=== PATIENT | female | born 1940 | race Caucasian/White ===

== ENCOUNTER 2016-10-03 18:34 | Emergency (ER) | payer MEDICARE, BC ==
[2016-10-03] MEDS ORDERED: SODIUM CHLORIDE 0.9% 1,000 ML IV STA (19:19)
--- NOTE | 2016-10-03 19:32 | ED ---
General Adult HPI - General Chief complaint: Dizziness Stated complaint: difficulty walking Time Seen by Provider: 10/03/16 19:00 Source: patient, family, RN notes reviewed Mode of arrival: wheelchair Limitations: no limitations - History of Present Illness Initial comments: This is a 76-year-old female who presents with complaints of feeling shaky and nervous and unsteady gait. She states she not feeling well for last several weeks. She was seen by her doctor 4 days ago he did have blood work done which apparently was okay. She was noted have also increase blood pressure recently she had taken extra medication. She's had some urinary frequency she is likely a decreased oral intake. No other complaints other than a cough and some shortness of breath the patient's history of lung cancer she had a right upper lobe resection approximately 3 years ago and was treated with chemotherapy. She has been doing well since then. She had a PET scan done approximately year ago which showed no apparent findings at that time. - Related Data Home Medications Medication Instructions Recorded Confirmed Aspirin 81 mg PO DAILY 07/17/14 10/03/16 Atenolol [Tenormin] 25 mg PO DAILY 07/17/14 10/03/16 Benazepril HCl 20 mg PO DAILY 07/17/14 10/03/16 Isosorbide Mononitrate [Imdur] 30 mg PO DAILY 07/17/14 10/03/16 Atorvastatin [Lipitor] 10 mg PO HS 06/11/15 10/03/16 Multivitamins, Thera [Theragran] 1 tab PO DAILY 06/11/15 10/03/16 L.acidoph,Paracasei, B.lactis 1 cap PO DAILY 07/28/16 10/03/16 [Probiotic] Allergies Allergy/AdvReac Type Severity Reaction Status Date / Time amoxicillin AdvReac Unknown Verified 10/03/16 19:47 Childhood Review of Systems ROS Statement: Those systems with pertinent positive or pertinent negative responses have been documented in the HPI. ROS Other: All systems not noted in ROS Statement are negative. Past Medical History Past Medical History: Asthma, Coronary Artery Disease (CAD), Cancer, COPD, GERD/ Reflux, Hypertension Additional Past Medical History / Comment(s): hx. lung cancer, tongue cancer status post resection and left neck lymph node resection, fell fx tailbone,, fx rt ankle, has torn rt rotator cuff limited range of motion.occ vertigo, History of Any Multi-Drug Resistant Organisms: None Reported Past Surgical History: Tonsillectomy Additional Past Surgical History / Comment(s): YVES cataract surg., surgery for tongue cancer & removal of lymph nodes left neck, recent right partial lobectomy of lung October 2013 has spread to lymph nodes(sternum per pt),had had 6 chemo tx(last one may 26),d&c, yves cataracts, lt carotid endarterectomy Past Anesthesia/Blood Transfusion Reactions: No Reported Reaction Additional Past Anesthesia/Blood Transfusion Reaction / Comment(s): occ vertigo , clausterphobia. Past Psychological History: Anxiety Smoking Status: Current some day smoker Past Alcohol Use History: None Reported Additional Past Alcohol Use History / Comment(s): 1 pack may last 4 days Past Drug Use History: None Reported - Past Family History Father Family Medical History: Cancer, Dementia, Hyperlipidemia, Hypertension, Prostate Disorder Additional Family Medical History / Comment(s): PROSTATE Mother Family Medical History: Congestive Heart Failure (CHF), Hyperlipidemia, Hypertension General Exam - General Exam Comments Initial Comments: This is a well-developed well-nourished awake alert oriented 3 female Limitations: no limitations General appearance: alert, in no apparent distress Head exam: Present: atraumatic, normocephalic, normal inspection Eye exam: Present: normal appearance, PERRL, EOMI. Absent: scleral icterus, conjunctival injection, periorbital swelling ENT exam: Present: mucous membranes dry Neck exam: Present: normal inspection. Absent: tenderness, meningismus, lymphadenopathy Respiratory exam: Present: decreased breath sounds. Absent: respiratory distress, wheezes, rales, rhonchi, stridor Cardiovascular Exam: Present: regular rate, normal rhythm, normal heart sounds. Absent: systolic murmur, diastolic murmur, rubs, gallop, clicks GI/Abdominal exam: Present: soft, normal bowel sounds. Absent: distended, tenderness, guarding, rebound, rigid Extremities exam: Present: normal inspection, full ROM, normal capillary refill. Absent: tenderness, pedal edema, joint swelling, calf tenderness Back exam: Present: normal inspection Neurological exam: Present: alert, oriented X3, CN II-XII intact Psychiatric exam: Present: normal affect, normal mood Skin exam: Present: warm, dry, intact, normal color. Absent: rash Course Vital Signs 10/03/16 10/03/16 18:39 18:55 Temperature 98.4 F Pulse Rate 71 68 Respiratory 20 16 Rate Blood Pressure 162/74 154/78 O2 Sat by Pulse 96 95 Oximetry EKG Findings - EKG Results: EKG: interpreted by STEFFEN (Sinus rhythm rate is 70 WI interval 134 QRS duration 94 QT/QTC of 392/423 that exodeviation incomplete right bundle-branch block old septal changes no acute ST-T wave changes are seen at this time. Artifact is present) Medical Decision Making - Medical Decision Making I did a long discussion with the patient family members including 3 daughters regarding the findings. Patient currently is asymptomatic. We did a long discussion regarding the findings and the need for transfer for neurosurgical evaluation. After discussion the family is selected [facility]. I did discuss the case with Dr. Sanchez in the emergency department was agreed to set the patient transfer. Patient will be transferred via EMS. The patient was given 10 mg of Decadron prior to discharge. The metastatic event secondary to the previous lung cancer suspected though of course a second primary or secondary source of metastatic disease as not ruled out. - Lab Data Result diagrams: 10/03/16 18:55 10/03/16 18:55 Lab Results 10/03/16 10/03/16 10/03/16 Range/Units 18:55 18:55 18:55 WBC 7.6 (3.8-10.6) k/uL RBC 3.81 (3.80-5.40) m/uL Hgb 13.0 (11.4-16.0) gm/dL Hct 39.0 (34.0-46.0) % MCV 102.3 H (80.0-100.0) fL MCH 34.2 (25.0-35.0) pg MCHC 33.4 (31.0-37.0) g/dL RDW 13.1 (11.5-15.5) % Plt Count 152 (150-450) k/uL Neutrophils % 58 % Lymphocytes % 26 % Monocytes % 11 % Eosinophils % 1 % Basophils % 1 % Neutrophils # 4.4 (1.3-7.7) k/uL Lymphocytes # 2.0 (1.0-4.8) k/uL Monocytes # 0.8 (0-1.0) k/uL Eosinophils # 0.1 (0-0.7) k/uL Basophils # 0.1 (0-0.2) k/uL Macrocytosis Slight Sodium 130 L (137-145) mmol/L Potassium 4.2 (3.5-5.1) mmol/L Chloride 93 L (98-107) mmol/L Carbon Dioxide 27 (22-30) mmol/L Anion Gap 10 mmol/L BUN 20 H (7-17) mg/dL Creatinine 0.64 (0.52-1.04) mg/dL Est GFR (MDRD) Af Amer >60 (>60 ml/min/1.73 sqM) Est GFR (MDRD) Non-Af >60 (>60 ml/min/1.73 sqM) Glucose 99 (74-99) mg/dL Calcium 9.2 (8.4-10.2) mg/dL Magnesium 1.4 L (1.6-2.3) mg/dL Total Bilirubin 0.4 (0.2-1.3) mg/dL AST 35 (14-36) U/L ALT 45 (9-52) U/L Alkaline Phosphatase 68 (38-126) U/L Total Creatine Kinase 113 (30-135) U/L CK-MB (CK-2) 2.9 H* (0.0-2.4) ng/mL CK-MB (CK-2) Rel Index 2.6 Total Protein 6.7 (6.3-8.2) g/dL Albumin 4.1 (3.5-5.0) g/dL Amylase 90 (30-110) U/L Lipase 145 (23-300) U/L Urine Color Urine Appearance (Clear) Urine pH (5.0-8.0) Ur Specific [place] (1.001-1.035) Urine Protein (Negative) Urine Glucose (UA) (Negative) Urine Ketones (Negative) Urine Blood (Negative) Urine Nitrate (Negative) Urine Bilirubin (Negative) Urine Urobilinogen (<2.0) mg/dL Ur Leukocyte Esterase (Negative) Urine RBC (0-5) /hpf Urine WBC (0-5) /hpf Ur Squamous Epith Cells (0-4) /hpf Urine Bacteria (None) /hpf Urine Mucus (None) /hpf 10/03/16 Range/Units 19:35 WBC (3.8-10.6) k/uL RBC (3.80-5.40) m/uL Hgb (11.4-16.0) gm/dL Hct (34.0-46.0) % MCV (80.0-100.0) fL MCH (25.0-35.0) pg MCHC (31.0-37.0) g/dL RDW (11.5-15.5) % Plt Count (150-450) k/uL Neutrophils % % Lymphocytes % % Monocytes % % Eosinophils % % Basophils % % Neutrophils # (1.3-7.7) k/uL Lymphocytes # (1.0-4.8) k/uL Monocytes # (0-1.0) k/uL Eosinophils # (0-0.7) k/uL Basophils # (0-0.2) k/uL Macrocytosis Sodium (137-145) mmol/L Potassium (3.5-5.1) mmol/L Chloride (98-107) mmol/L Carbon Dioxide (22-30) mmol/L Anion Gap mmol/L BUN (7-17) mg/dL Creatinine (0.52-1.04) mg/dL Est GFR (MDRD) Af Amer (>60 ml/min/1.73 sqM) Est GFR (MDRD) Non-Af (>60 ml/min/1.73 sqM) Glucose (74-99) mg/dL Calcium (8.4-10.2) mg/dL Magnesium (1.6-2.3) mg/dL Total Bilirubin (0.2-1.3) mg/dL AST (14-36) U/L ALT (9-52) U/L Alkaline Phosphatase (38-126) U/L Total Creatine Kinase (30-135) U/L CK-MB (CK-2) (0.0-2.4) ng/mL CK-MB (CK-2) Rel Index Total Protein (6.3-8.2) g/dL Albumin (3.5-5.0) g/dL Amylase (30-110) U/L Lipase (23-300) U/L Urine Color Light Yellow Urine Appearance Clear (Clear) Urine pH 7.5 (5.0-8.0) Ur Specific [place] 1.007 (1.001-1.035) Urine Protein Negative (Negative) Urine Glucose (UA) Negative (Negative) Urine Ketones Negative (Negative) Urine Blood Negative (Negative) Urine Nitrate Negative (Negative) Urine Bilirubin Negative (Negative) Urine Urobilinogen <2.0 (<2.0) mg/dL Ur Leukocyte Esterase Large H (Negative) Urine RBC 2 (0-5) /hpf Urine WBC 11 H (0-5) /hpf Ur Squamous Epith Cells 1 (0-4) /hpf Urine Bacteria Rare H (None) /hpf Urine Mucus Rare H (None) /hpf - Radiology Data Radiology results: report reviewed (I did review the imaging and discussed the findings with the radiologist. Patient does demonstrate a CAT scan evidence of vasogenic edema with a suspected underlying mass within the right temporal parietal region with 7 mm of [id number] midline shift and some effacement of the sulci.), image reviewed Disposition Clinical Impression: Brain mass, History of lung cancer Disposition: OTHER INSTITUTION NOT DEFINED Condition: Serious - Out of Hospital Transfer - Req. Specs Out of Hospital Transfer - Requested Specifics: Other Emergency Center
[2016-10-03 19:35] LABS: Basophils # (A) 0.1 k/uL (0-0.2); Basophils % (A) 1 %; CH 34.4; CHCM 33.8; Eosinophils # (A) 0.1 k/uL (0-0.7); Eosinophils % (A) 1 %; Luc # (Auto) 0.23; Luc % (Auto) 3; Lymphocytes % (A) 26 %; MCH 34.2 pg (25.0-35.0); MCHC 33.4 g/dL (31.0-37.0); MCV 102.3 fL (80.0-100.0); Macrocytosis Slight; Mean Platelet Volume 8.6; Monocytes # (A) 0.8 k/uL (0-1.0); Monocytes % (A) 11 %; Neutrophils # (A) 4.4 k/uL (1.3-7.7); Neutrophils % (A) 58 %; RBC 3.81 m/uL (3.80-5.40); RDW 13.1 % (11.5-15.5); WBC 7.6 k/uL (3.8-10.6); WBC (Perox) 7.49
[2016-10-03 19:39] LABS: ALT 45 U/L (9-52); AST 35 U/L (14-36); Alkaline Phosphatase 68 U/L (38-126); Amylase 90 U/L (30-110); Anion Gap 10 mmol/L; Blood Urea Nitrogen 20 mg/dL (7-17); Calcium 9.2 mg/dL (8.4-10.2); Carbon Dioxide 27 mmol/L (22-30); Chloride 93 mmol/L (98-107); Glucose 99 mg/dL (74-99); Magnesium 1.4 mg/dL (1.6-2.3); Non-African American GFR(MDRD) >60 (>60 ml/min/1.73 sqM); Potassium 4.2 mmol/L (3.5-5.1); Sodium 130 mmol/L (137-145); Total Bilirubin 0.4 mg/dL (0.2-1.3); Total Protein 6.7 g/dL (6.3-8.2)
[2016-10-03 19:55] LABS: Appearance,Urine Clear (Clear); Bacteria,Urine Rare /hpf; Bilirubin,Urine Negative (Negative); Glucose,Urine (UA) Negative (Negative); Ketones,Urine Negative (Negative); Leukocyte Esterase,Urine Large (Negative); Nitrite,Urine Negative (Negative); PH, Urine 7.5 (5.0-8.0); Particle Count 2234; Protein,Urine Negative (Negative); RBC,Urine 2 /hpf (0-5); Specific Gravity,Urine 1.007 (1.001-1.035); Squamous Epithelial Cell,Urine 1 /hpf (0-4); UA Billing (MACRO vs. MICRO) MICRO; Urobilinogen,Urine <2.0 mg/dL (<2.0); WBC,Urine 11 /hpf (0-5)
[2016-10-03 19:59] LABS: Mucus,Urine Rare /hpf
[2016-10-03 20:03] LABS: Creatine Kinase MB 2.9 ng/mL (0.0-2.4)
--- NOTE | 2016-10-03 20:24 | CT ---
EXAMINATION TYPE: CT brain wo con DATE OF EXAM: 10/03/2016 8:12 PM COMPARISON: Partial comparison 08/30/2015 CT for PET localization INDICATION: weakness and dizziness DLP: 961 mGycm, Automated exposure control for dose reduction was used. CONTRAST: None CT of the brain is performed utilizing 3 mm thick sections through the posterior fossa and 3 mm thick sections through the remaining calvarium. Study is performed within 24 hours of arrival to the hosp [facility]. Vasogenic edema is present on the right parietal and temporal regions. This is compressing the right lateral ventricle. There is some mild midline shift. Greatest subfalcine herniation is approximately 7 mm level of the third ventricle. There is effacement of sulci on the right. This is new within the [id number] from 08/30/2015. Left sulci are prominent compatible with atrophy. No temporal horn dilatation is evident. The right t emporal horn appears compressed. Quadrigeminal plate and ambient cistern are normal. Foramen magnum a ppears normal. No acute intracranial hemorrhage is evident. IMPRESSIONS: 1. Vasogenic edema with suspected underlying mass within the right temporal parietal region has 7 m m [id number] midline shift and effacement of sulci. 2. Report was called to Dr. Dorado by Dr. Daniel by telephone 2020 hours 10/03/2016
--- NOTE | 2016-10-03 20:27 | XR ---
EXAMINATION TYPE: XR chest 2V DATE OF EXAM: 10/03/2016 8:17 PM COMPARISON: 04/22/2016 INDICATION: Cough TECHNIQUE: Single frontal view of the chest is obtained. FINDINGS: The heart size is normal. Mediastinum is shifted slightly towards the right secondary to partial lob ectomy. Surgical clips are in the right hilar region. The pulmonary vasculature is normal. No focal consolidation is evident. Recurrent mass in the chest is not identified. IMPRESSION: 1. No acute pulmonary process.
[2016-10-03] MEDS ORDERED: DEXAMETHASONE SOD PHOSPHATE 10 MG/ML 1 ML VIAL IV STA (21:20)
[2016-10-03 21:51] VITALS: RESP 18
[2016-10-04 00:09] VITALS: BP 169/72; PULSE 72; TEMP 98.9
== END 2016-10-03 22:20 | disposition short-term general hospital (02) ==
LOC: EC 18:34
DX: G93.89 Other specified disorders of brain (principal); R42 Dizziness and giddiness; R26.2 Difficulty in walking, not elsewhere classified; R05 Cough; R06.02 Shortness of breath; I10 Essential (primary) hypertension; J44.9 Chronic obstructive pulmonary disease, unspecified; J45.909 Unspecified asthma, uncomplicated; I25.10 Atherosclerotic heart disease of native coronary artery without angina pectoris; Z85.118 Personal history of other malignant neoplasm of bronchus and lung; Z85.810 Personal history of malignant neoplasm of tongue; Z82.49 Family history of ischemic heart disease and other diseases of the circulatory system; Z80.9 Family history of malignant neoplasm, unspecified; F17.200 Nicotine dependence, unspecified, uncomplicated; Z79.82 Long term (current) use of aspirin; Z79.899 Other long term (current) drug therapy; Z88.0 Allergy status to penicillin; Z90.89 Acquired absence of other organs; Z98.890 Other specified postprocedural states; Z90.2 Acquired absence of lung [part of]
CPT/HCPCS: 99285; 96374; 36415; 93005; 80053; 82150; 82550; 82553; 83690; 83735; 85025; 81001; 71020; 70450; J1100

== ENCOUNTER 2016-11-15 11:20 | Inpatient (IN) | payer MEDICARE, BC ==
[2016-11-15 13:48] LABS: Basophils # (A) 0.1 k/uL (0-0.2); Basophils % (A) 0 %; CHCM 34.3; Eosinophils % (A) 0 %; HCT 44.2 % (34.0-46.0); HGB 14.9 gm/dL (11.4-16.0); Luc # (Auto) 0.21; Luc % (Auto) 1; Lymphocytes # (A) 0.7 k/uL (1.0-4.8); Lymphocytes % (A) 4 %; MCH 33.6 pg (25.0-35.0); MCHC 33.7 g/dL (31.0-37.0); MCV 99.7 fL (80.0-100.0); Mean Platelet Volume 7.1; Monocytes # (A) 0.4 k/uL (0-1.0); Monocytes % (A) 2 %; Neutrophils # (A) 15.4 k/uL (1.3-7.7); Neutrophils % (A) 92 %; RBC 4.43 m/uL (3.80-5.40); RDW 13.3 % (11.5-15.5); WBC 16.8 k/uL (3.8-10.6)
[2016-11-15 13:58] LABS: INR 1.2 (<1.1); Partial Thromboplastin Time 22.5 sec (22.0-30.0); Prothrombin Time 11.9 sec (9.0-12.0)
[2016-11-15 14:00] LABS: ALT 41 U/L (9-52); AST 24 U/L (14-36); Alkaline Phosphatase 75 U/L (38-126); Anion Gap 10 mmol/L; Blood Urea Nitrogen 20 mg/dL (7-17); Calcium 8.9 mg/dL (8.4-10.2); Carbon Dioxide 24 mmol/L (22-30); Chloride 97 mmol/L (98-107); Glucose 86 mg/dL (74-99); Non-African American GFR(MDRD) >60 (>60 ml/min/1.73 sqM); Potassium 4.6 mmol/L (3.5-5.1); Sodium 131 mmol/L (137-145); Total Bilirubin 0.7 mg/dL (0.2-1.3); Total Protein 5.7 g/dL (6.3-8.2)
[2016-11-15 14:21] LABS: Troponin I 0.03 ng/mL (0.000-0.034)
[2016-11-15 14:22] LABS: Creatine Kinase MB 3.1 ng/mL (0.0-2.4)
[2016-11-15] MEDS ORDERED: NALOXONE 0.4 MG/ML 1 ML VIAL IV PRN (15:11)
[2016-11-15] MEDS ORDERED: ACETAMINOPHEN TAB 325 MG TAB PO PRN (15:11)
[2016-11-15] MEDS ORDERED: ONDANSETRON 4 MG/2 ML VIAL IVP PRN (15:11)
--- NOTE | 2016-11-15 15:11 | ED ---
GI Bleed HPI - General Chief complaint: GI Bleed Stated complaint: RECTAL BLEEDING Time Seen by Provider: 11/15/16 12:57 Source: patient Mode of arrival: wheelchair Limitations: no limitations - History of Present Illness Initial comments: This 76-year-old white female presents with the complaint of some bloody diarrhea which occurred this morning. She states it is bright red blood with occasional clots. Is a moderate amount of blood. It was mixed in with or diarrhea. She denies any previous similar type episodes. She is on aspirin but denies any other blood thinners. She does have a history of having a colonoscopy by Dr. Medina from gastroenterology late this past year. This barely did show some diverticulosis. She also relates that she's been battling lung cancer which apparently metastasized her brain. The lung cancer is resolved with the brain cancer has been treated with chemotherapy and radiation therapy. She denies any abdominal pain or fevers. She denies any other complaints or modifying factors. - Related Data Home Medications Medication Instructions Recorded Confirmed Aspirin 81 mg PO DAILY 07/17/14 11/15/16 Atenolol [Tenormin] 25 mg PO DAILY 07/17/14 11/15/16 Benazepril HCl 20 mg PO DAILY 07/17/14 11/15/16 Atorvastatin [Lipitor] 10 mg PO HS 06/11/15 11/15/16 Multivitamins, Thera [Theragran] 1 tab PO DAILY 06/11/15 11/15/16 L.acidoph,Paracasei, B.lactis 1 cap PO DAILY 07/28/16 11/15/16 [Probiotic] Dexamethasone [Hexadrol] 4 mg PO QID 11/15/16 11/15/16 Fluconazole [Diflucan] 100 mg PO DAILY 11/15/16 11/15/16 Isosorbide Mononitrate 20 mg PO DAILY 11/15/16 11/15/16 Nicotine 14Mg/24Hr Patch [Habitrol 1 patch TRANSDERM DAILY 11/15/16 11/15/16 14Mg/24Hr Patch] Omeprazole 20 mg PO DAILY 11/15/16 11/15/16 levETIRAcetam [Keppra] 500 mg PO Q12HR 11/15/16 11/15/16 Allergies Allergy/AdvReac Type Severity Reaction Status Date / Time amoxicillin AdvReac Unknown Verified 11/15/16 14:08 Childhood Review of Systems ROS Statement: Those systems with pertinent positive or pertinent negative responses have been documented in the HPI. ROS Other: All systems not noted in ROS Statement are negative. Past Medical History Past Medical History: Asthma, Coronary Artery Disease (CAD), Cancer, COPD, GERD/ Reflux, Hypertension Additional Past Medical History / Comment(s): hx. lung cancer, tongue cancer status post resection and left neck lymph node resection, fell fx tailbone,, fx rt ankle, has torn rt rotator cuff limited range of motion.occ vertigo, brain tumor History of Any Multi-Drug Resistant Organisms: None Reported Past Surgical History: Tonsillectomy Additional Past Surgical History / Comment(s): YVES cataract surg., surgery for tongue cancer & removal of lymph nodes left neck, recent right partial lobectomy of lung October 2013 has spread to lymph nodes(sternum per pt),had had 6 chemo tx(last one may 26),d&c, yves cataracts, lt carotid endarterectomy Past Anesthesia/Blood Transfusion Reactions: No Reported Reaction Additional Past Anesthesia/Blood Transfusion Reaction / Comment(s): occ vertigo , clausterphobia. Past Psychological History: Anxiety Smoking Status: Former smoker Past Alcohol Use History: None Reported Additional Past Alcohol Use History / Comment(s): 1 pack may last 4 days Past Drug Use History: None Reported - Past Family History Father Family Medical History: Cancer, Dementia, Hyperlipidemia, Hypertension, Prostate Disorder Additional Family Medical History / Comment(s): PROSTATE Mother Family Medical History: Congestive Heart Failure (CHF), Hyperlipidemia, Hypertension General Exam - General Exam Comments Initial Comments: GENERAL: The patient is well nourished and well hydrated. VITAL SIGNS: Heart rate, blood pressure, respiratory rate reviewed as recorded in nurse's notes. EYES: Pupils are round and reactive. Extraocular movements are intact. No conjunctival / lid redness or swelling. ENT: No external evidence of injury, swelling, or ecchymosis. Airway is patent. Throat is clear. NECK: Nontender. No swelling or evidence of injury. No subcutaneous emphysema. Trachea is midline. No thyroid mass. HEART: Regular rate and rhythm. Good peripheral pulses. LUNGS/CHEST: Breath sounds clear and equal bilaterally. No rales, rhonchi, or wheezes. No ecchymosis, subcutaneous emphysema, or tenderness. ABDOMEN: Abdomen soft without tenderness. No palpable masses or organomegaly. No peritoneal signs. No abdominal wall swelling or ecchymosis. EXTREMITIES: No extremity tenderness. Normal muscle tone and function. No thoracolumbar tenderness. NEUROLOGIC: Sensation is grossly intact. Cranial nerve exam reveals face is symmetrical, tongue is midline, speech is clear. SKIN: No abrasions or ecchymosis is noted. No induration or masses noted. PSYCHIATRIC: Alert and oriented. Appropriate behavior and judgment. Limitations: no limitations Course Vital Signs 11/15/16 12:05 Temperature 98.0 F Pulse Rate 85 Respiratory 14 Rate Blood Pressure 119/70 O2 Sat by Pulse 94 L Oximetry Medical Decision Making - Medical Decision Making The patient was seen and examined. All diagnostics were reviewed. The EKG shows a normal sinus rhythm with occasional PVCs noted. There is evidence of a left axis deviation. There is no acute ST-T wave changes identified. The AR interval is 138, QS duration is 88, and the QTc interval is 459. An IV is started. She has not given significant fluid hydration because she has a history of hyponatremia and is on a 1500 mL fluid restriction daily. The laboratory is reviewed and does show a CK-MB elevated at 3.1. The white blood cell count is elevated at 16.8 the sodium is low at 131. The hemoglobin is stable at 14.9. The exact cause of her GI bleeding is not definitively determine but it is felt as though it certainly could be related to her diverticulosis. This felt as though she benefit from admission for close observation and serial hemoglobins and GI evaluation. She is agreeable. Case is discussed with Dr. Guzmán and he is agreeable with admission with GI to consult. - Lab Data Result diagrams: 11/15/16 13:35 11/15/16 13:35 Lab Results 11/15/16 11/15/16 11/15/16 Range/Units 13:35 13:35 13:35 WBC 16.8 H (3.8-10.6) k/uL RBC 4.43 (3.80-5.40) m/uL Hgb 14.9 (11.4-16.0) gm/dL Hct 44.2 (34.0-46.0) % MCV 99.7 (80.0-100.0) fL MCH 33.6 (25.0-35.0) pg MCHC 33.7 (31.0-37.0) g/dL RDW 13.3 (11.5-15.5) % Plt Count 219 (150-450) k/uL Neutrophils % 92 % Lymphocytes % 4 % Monocytes % 2 % Eosinophils % 0 % Basophils % 0 % Neutrophils # 15.4 H (1.3-7.7) k/uL Lymphocytes # 0.7 L (1.0-4.8) k/uL Monocytes # 0.4 (0-1.0) k/uL Eosinophils # 0.0 (0-0.7) k/uL Basophils # 0.1 (0-0.2) k/uL PT (9.0-12.0) sec INR (<1.1) APTT (22.0-30.0) sec Sodium 131 L (137-145) mmol/L Potassium 4.6 (3.5-5.1) mmol/L Chloride 97 L (98-107) mmol/L Carbon Dioxide 24 (22-30) mmol/L Anion Gap 10 mmol/L BUN 20 H (7-17) mg/dL Creatinine 0.47 L (0.52-1.04) mg/dL Est GFR (MDRD) Af Amer >60 (>60 ml/min/1.73 sqM) Est GFR (MDRD) Non-Af >60 (>60 ml/min/1.73 sqM) Glucose 86 (74-99) mg/dL Calcium 8.9 (8.4-10.2) mg/dL Total Bilirubin 0.7 (0.2-1.3) mg/dL AST 24 (14-36) U/L ALT 41 (9-52) U/L Alkaline Phosphatase 75 (38-126) U/L Total Creatine Kinase 27 L (30-135) U/L CK-MB (CK-2) 3.1 H* (0.0-2.4) ng/mL CK-MB (CK-2) Rel Index 11.5 Troponin I 0.030 (0.000-0.034) ng/mL Total Protein 5.7 L (6.3-8.2) g/dL Albumin 2.8 L (3.5-5.0) g/dL 11/15/16 Range/Units 13:35 WBC (3.8-10.6) k/uL RBC (3.80-5.40) m/uL Hgb (11.4-16.0) gm/dL Hct (34.0-46.0) % MCV (80.0-100.0) fL MCH (25.0-35.0) pg MCHC (31.0-37.0) g/dL RDW (11.5-15.5) % Plt Count (150-450) k/uL Neutrophils % % Lymphocytes % % Monocytes % % Eosinophils % % Basophils % % Neutrophils # (1.3-7.7) k/uL Lymphocytes # (1.0-4.8) k/uL Monocytes # (0-1.0) k/uL Eosinophils # (0-0.7) k/uL Basophils # (0-0.2) k/uL PT 11.9 (9.0-12.0) sec INR 1.2 (<1.1) APTT 22.5 (22.0-30.0) sec Sodium (137-145) mmol/L Potassium (3.5-5.1) mmol/L Chloride (98-107) mmol/L Carbon Dioxide (22-30) mmol/L Anion Gap mmol/L BUN (7-17) mg/dL Creatinine (0.52-1.04) mg/dL Est GFR (MDRD) Af Amer (>60 ml/min/1.73 sqM) Est GFR (MDRD) Non-Af (>60 ml/min/1.73 sqM) Glucose (74-99) mg/dL Calcium (8.4-10.2) mg/dL Total Bilirubin (0.2-1.3) mg/dL AST (14-36) U/L ALT (9-52) U/L Alkaline Phosphatase (38-126) U/L Total Creatine Kinase (30-135) U/L CK-MB (CK-2) (0.0-2.4) ng/mL CK-MB (CK-2) Rel Index Troponin I (0.000-0.034) ng/mL Total Protein (6.3-8.2) g/dL Albumin (3.5-5.0) g/dL Disposition Clinical Impression: Lower gastrointestinal hemorrhage, Brain cancer, Hyponatremia, Leukocytosis, Cardiac enzymes elevated Disposition: ADMITTED IP TO THIS HOSP Condition: Fair Time of Disposition: 15:10 Decision Date: 11/15/16 Decision Time: 15:10
[2016-11-15] MEDS ORDERED: PANTOPRAZOLE 40 MG/10 ML VIAL IV STA (15:22)
[2016-11-15 18:44] VITALS: BMI 15.9
[2016-11-15] MEDS: levETIRAcetam 500 MG TAB PO SCH (20:00)
[2016-11-15] MEDS: DEXAMETHASONE 4 MG TAB PO SCH ×2 (20:00→20:03)
[2016-11-15 20:35] LABS: Troponin I 0.026 ng/mL (0.000-0.034)
[2016-11-15 20:38] LABS: Creatine Kinase MB 2.8 ng/mL (0.0-2.4)
[2016-11-15] MEDS ORDERED: ATORVASTATIN 10 MG TAB PO SCH (21:00)
[2016-11-16 02:44] LABS: Creatine Kinase <20 U/L (30-135)
[2016-11-16 02:57] LABS: Troponin I 0.024 ng/mL (0.000-0.034)
[2016-11-16 02:58] LABS: Creatine Kinase MB 2.6 ng/mL (0.0-2.4)
[2016-11-16 07:09] LABS: Basophils # (A) 0.1 k/uL (0-0.2); Basophils % (A) 1 %; CH 33.6; CHCM 33.1; Eosinophils % (A) 0 %; HCT 43.1 % (34.0-46.0); HDW 2.29; HGB 14.1 gm/dL (11.4-16.0); Luc # (Auto) 0.26; Luc % (Auto) 2; Lymphocytes % (A) 8 %; MCH 33.3 pg (25.0-35.0); MCHC 32.7 g/dL (31.0-37.0); MCV 101.9 fL (80.0-100.0); Macrocytosis Slight; Monocytes # (A) 0.4 k/uL (0-1.0); Monocytes % (A) 4 %; Neutrophils # (A) 9.8 k/uL (1.3-7.7); Neutrophils % (A) 85 %; RBC 4.23 m/uL (3.80-5.40); RDW 13.4 % (11.5-15.5); WBC 11.5 k/uL (3.8-10.6); WBC (Perox) 11.99
[2016-11-16 07:26] LABS: Anion Gap 8 mmol/L; Blood Urea Nitrogen 18 mg/dL (7-17); Calcium 8.4 mg/dL (8.4-10.2); Carbon Dioxide 24 mmol/L (22-30); Chloride 99 mmol/L (98-107); Glucose 78 mg/dL (74-99); Non-African American GFR(MDRD) >60 (>60 ml/min/1.73 sqM); Sodium 131 mmol/L (137-145)
[2016-11-16] MEDS ORDERED: ISOSORBIDE MONONITRATE 20 MG TAB PO SCH (09:00)
[2016-11-16] MEDS ORDERED: ATENOLOL 25 MG TAB PO SCH (09:00)
[2016-11-16] MEDS ORDERED: NICOTINE 14MG/24HR PATCH TRANSDERM SCH (09:00)
[2016-11-16] MEDS ORDERED: PANTOPRAZOLE 40 MG/10 ML VIAL IV SCH (09:00)
[2016-11-16] MEDS ORDERED: FLUCONAZOLE 100 MG TAB PO SCH (09:00)
[2016-11-16] MEDS: DEXAMETHASONE 4 MG TAB PO SCH (09:30)
[2016-11-16] MEDS: LISINOPRIL 20 MG TAB PO SCH ×2 (09:30→09:47)
[2016-11-16] MEDS: levETIRAcetam 500 MG TAB PO SCH (09:31)
--- NOTE | 2016-11-16 10:24 | P.CONS ---
History of Present Illness - Reason for Consult Consult date: 11/16/16 Rectal bleeding Requesting physician: Fermin Guzmán - History of Present Illness 76-year-old female patient Dr. Bundy with a past medical history of non-small cell lung carcinoma requiring partial lobectomy with recurrence/brain metastasis status post chemotherapy May 2016 and radiation earlier this month, gram-negative bacteremia, asthma, CAD, COPD, GERD, hypertension, pneumonia. Admitted with painless rectal bleeding 1 yesterday described as bright red with clots. Denies fever, chills melena or hematemesis. She recently underwent colonoscopy with biopsies in July 2016 for nonbloody diarrhea with findings of normal-appearing colon from rectum to cecum with no evidence of colitis or colorectal neoplasia. Scattered sigmoid diverticulosis. Biopsies indicated lymphocytic colitis but did not require further treatment secondary to resolution of diarrhea. Presently she is resting comfortably without abdominal pain. She ate full breakfast without recurrence of bleeding or diarrhea. 2 brown formed bowel movements this morning. Hemoglobin on admission 14.9 currently 14.1. White count 16.8 currently 11.5. No excessive usage of aspirin or NSAIDs. Review of Systems Constitutional: Denies fever, chills, sweats, weight gain, or loss. HEENT: Negative for migraines, blurred vision or loss, earaches, drainage, tinnitus, oral mucosal lesions, dysphagia, or odynophagia. CARDIAC: CAD. Hypertension. Negative for chest pain, arrhythmias, or palpitation. RESPIRATORY: Asthma. Lung cancer with brain metastasis. COPD. Negative for shortness of breath, hemoptysis, cough, or sputum production. GI: See HPI for pertinent findings. : Negative for hematuria, urgency, frequency, polyuria, or dysuria. GYNc: Negative vaginal discharge. MUSCULOSKELETAL: Negative for muscle aches, swelling, arthritis, and arthralgias. NEUROLOGIC: Negative for stroke or TIA. Vertigo. ENDOCRINE: Negative for thyroid problems. SKIN: Negative for rash or itching. PSYCHIATRIC: Negative history for depression. History of anxiety. Claustrophobia. Past Medical History Past Medical History: Asthma, Coronary Artery Disease (CAD), Cancer, COPD, GERD/ Reflux, Hypertension Additional Past Medical History / Comment(s): hx. lung cancer, tongue cancer status post resection and left neck lymph node resection, fell fx tailbone,, fx rt ankle, has torn rt rotator cuff limited range of motion.occ vertigo, brain tumor History of Any Multi-Drug Resistant Organisms: None Reported Past Surgical History: Tonsillectomy Additional Past Surgical History / Comment(s): [facility] cataract surg., surgery for tongue cancer & removal of lymph nodes left neck, recent right partial lobectomy of lung October 2013 has spread to lymph nodes(sternum per pt),had had 6 chemo tx(last one may 26),d&c, yves cataracts, lt carotid endarterectomy Past Anesthesia/Blood Transfusion Reactions: No Reported Reaction Additional Past Anesthesia/Blood Transfusion Reaction / Comm: occ vertigo, clausterphobia. Past Psychological History: Anxiety Smoking Status: Former smoker Past Alcohol Use History: None Reported Additional Past Alcohol Use History / Comment(s): 1 pack may last 4 days Past Drug Use History: None Reported - Past Family History Father Family Medical History: Cancer, Dementia, Hyperlipidemia, Hypertension, Prostate Disorder Additional Family Medical History / Comment(s): PROSTATE Mother Family Medical History: Congestive Heart Failure (CHF), Hyperlipidemia, Hypertension Medications and Allergies Home Medications Medication Instructions Recorded Confirmed Type Aspirin 81 mg PO DAILY 07/17/14 11/15/16 History Atenolol [Tenormin] 25 mg PO DAILY 07/17/14 11/15/16 History Benazepril HCl 20 mg PO DAILY 07/17/14 11/15/16 History Atorvastatin [Lipitor] 10 mg PO HS 06/11/15 11/15/16 History Multivitamins, Thera [Theragran] 1 tab PO DAILY 06/11/15 11/15/16 History L.acidoph,Paracasei, B.lactis 1 cap PO DAILY 07/28/16 11/15/16 History [Probiotic] Dexamethasone [Hexadrol] 4 mg PO QID 11/15/16 11/15/16 History Fluconazole [Diflucan] 100 mg PO DAILY 11/15/16 11/15/16 History Isosorbide Mononitrate 20 mg PO DAILY 11/15/16 11/15/16 History Nicotine 14Mg/24Hr Patch [Habitrol 1 patch TRANSDERM DAILY 11/15/16 11/15/16 History 14Mg/24Hr Patch] Omeprazole 20 mg PO DAILY 11/15/16 11/15/16 History levETIRAcetam [Keppra] 500 mg PO Q12HR 11/15/16 11/15/16 History Allergies Allergy/AdvReac Type Severity Reaction Status Date / Time amoxicillin AdvReac Unknown Verified 11/15/16 14:08 Childhood Physical Exam Vitals: Vital Signs Temp Pulse Pulse Resp BP BP Pulse Ox 11/16/16 08:00 97.9 F 82 18 152/87 93 L 11/16/16 04:00 97.9 F 77 16 150/76 95 11/16/16 00:00 97.7 F 85 16 141/76 93 L 11/15/16 20:00 16 11/15/16 18:44 16 11/15/16 18:06 97.5 F L 83 16 106/49 94 L 11/15/16 16:02 97.1 F L 98 18 124/64 98 Intake and Output 11/15/16 11/16/16 11/16/16 22:59 06:59 14:59 Intake Total 240 360 Balance 240 360 Intake: Oral 240 360 Other: Voiding Method Toilet Toilet Toilet # Voids 1 1 # Bowel Movements 1 Weight 42 kg General appearance: The patient is alert, oriented, in no acute distress. HET: Head is normocephalic and atraumatic with thin distribution of sparse hair. Pupils are equal and reactive. Oropharynx is clear without lesions. Neck: Supple without lymphadenopathy. Trachea midline. Heart: S1 S2. Regular rate and rhythm. Lungs: No crackles or wheezes are heard. Abdomen: Soft, nontender, nondistended with bowel sounds. No peritoneal signs. No palpable organomegaly or masses. Extremities: Normal skin color and turgor. No cyanosis, rash, ulceration, clubbing, or edema. Radial and pedal pulses are 2/4 bilaterally. Neurological: No focal deficits. Strength and sensation are grossly intact. Results CBC & Chem 7: 11/16/16 06:51 11/16/16 06:51 Labs: Abnormal Lab Results - Last 24 Hours (Table) 11/15/16 11/16/16 11/16/16 Range/Units 19:50 02:01 06:51 WBC 11.5 H (3.8-10.6) k/uL MCV 101.9 H (80.0-100.0) fL Neutrophils # 9.8 H (1.3-7.7) k/uL Sodium (137-145) mmol/L BUN (7-17) mg/dL Creatinine (0.52-1.04) mg/dL Total Creatine Kinase 23 L <20 L (30-135) U/L CK-MB (CK-2) 2.8 H* 2.6 H* (0.0-2.4) ng/mL 11/16/16 Range/Units 06:51 WBC (3.8-10.6) k/uL MCV (80.0-100.0) fL Neutrophils # (1.3-7.7) k/uL Sodium 131 L (137-145) mmol/L BUN 18 H (7-17) mg/dL Creatinine 0.48 L (0.52-1.04) mg/dL Total Creatine Kinase (30-135) U/L CK-MB (CK-2) (0.0-2.4) ng/mL Assessment and Plan (1) Acute lower GI bleeding Narrative/Plan: Status post colonoscopy July 2016 or evaluation of nonbloody diarrhea with findings of normal appearing colon with sigmoid diverticulosis. suspect diverticular bleed however underlying ischemic colitis cannot be entirely excluded. Random colon biopsies indicated lymphocytic microscopic colitis. Status: Acute (2) Non-small cell carcinoma of lung Narrative/Plan: Brain metastasis Status: Acute Plan: 1. Supportive measures. Diet as tolerated. Repeat colonoscopy not planned at this time. 2. We'll follow with you. Thank you for this kind referral and the opportunity to participate in the care of your patient. This consultation was discussed with Dr. Reyes. The impression and plan of care have been directed as dictated.
[2016-11-16] MEDS ORDERED: LACTOBACILLUS ACIDOPH & BULGAR 1 EACH PACKET PO SCH (12:00)
[2016-11-16] MEDS ORDERED: MULTIVITAMINS, THERA 1 EACH TAB PO SCH (12:00)
--- NOTE | 2016-11-16 16:16 | HP ---
DATE OF ADMISSION: 11/16/2016 PRESENTING COMPLAINT: Blood rectally. HISTORY OF PRESENTING COMPLAINT: This is a 76-year-old patient of Dr. Phelan. Patient's chronic stable medical conditions include COPD, coronary artery disease, GERD, hyperlipidemia, right chronic rotator cuff injury. The patient has a history of lung cancer with right upper lobe removed about 12 years ago. Subsequently patient had a brain tumor that may be recurrent getting chemo and radiation treatment. Patient also had a colonoscopy in July 2016. Was found to have normal appearing colon and found to have scattered sigmoid diverticulosis. Biopsy did show lymphocytic colitis, but was not treated because the patient diarrhea resolved at that time. Patient today presented after she thought she was going to have a bowel movement and a handful of fresh blood with blood clot. This happened yesterday. No abdominal pain. No nausea or vomiting. Not any further episode. REVIEW OF SYSTEMS: CONSTITUTIONAL: Tired. HEENT: Slightly decreased hearing. RESPIRATORY: Some shortness short of breath. GASTROENTEROLOGY: As above. GENITOURINARY: None. MUSCULOSKELETAL: None. Dermatological: None. LYMPHATICS: None. PSYCHIATRY: None. NEUROLOGICAL: None. PAST HISTORY: COPD, coronary artery disease, GERD, hypertension, lung cancer, possible recurrence with brain tumor, previously right upper lobe removed. Tongue cancer with resection, lymph node resection, right rotator cuff injury. PAST SURGICAL HISTORY: Tonsillectomy, the rest as above, bilateral cataract surgery, left carotid endarterectomy. Past psych history of anxiety. SOCIAL HISTORY: Patient smoked for several years about 1/2 to quarter pack a day. Lives by herself. Family history of prostate disorder, hypertension, hyperlipidemia, depression, dementia. HOME MEDICATIONS: 1. Keppra 500 mg p.o. q.12. 2. Omeprazole 20 mg p.o. daily. 3. Nicotine one patch 14 daily. 4. Multivitamin 1 tablet p.o. daily. 5. Probiotic 1 capsule p.o. daily. 6. Imdur 20 mg p.o. daily. 7. Diflucan 100 mg p.o. daily. 8. Dexamethasone 4 mg p.o. q.i.d. 9. Benazepril 20 mg p.o. daily. 10. Lipitor 10 mg p.o. q.h.s. 11. Tenormin 25 mg p.o. daily. 12. Aspirin 81 mg p.o. daily. AMOXICILLIN ALLERGY. On examination, temperature 98, pulse 85, respiratory rate 14, blood pressure 109/70, pulse ox 94% on room air. GENERAL APPEARANCE: Thin built, BMI of 15.9, diffuse wasting. Sitting up. EYES: Pupils equal. Conjunctivae pale. HEENT: Loss of hair. Some facial asymmetry prior surgery, oral cavity missing teeth. NECK: JVD not raised. Mass palpable. RESPIRATORY: Effort normal. LUNGS: Diminished breath sounds. CARDIOVASCULAR: First and second sounds normal. No edema. ABDOMEN: Soft, nontender. Liver and spleen not palpable. LYMPHATIC: No lymph nodes palpable in neck or axillae. PSYCHIATRY: Alert and oriented x3. Mood and affect is normal. MUSCULOSKELETAL: Diffuse wasting of the muscles. Limited range of motion right shoulder. INVESTIGATIONS: White count 16.5, hemoglobin 14.9, sodium 131, potassium 4.6. BUN 20. Creatinine 0.47, albumin 2.8. ASSESSMENT: 1. Acute lower gastrointestinal bleed, likely diverticular in nature, given there is no fever. No associated abdominal pain, most of these typically self-resolving, but this is a patient who has a significant ( ) bleed. Should keep a close eye on the same. Patient did have a colonoscopy as indicated above. 2. Chronic obstructive pulmonary disease in an ex-smoker. 3. Coronary artery disease. 4. Gastroesophageal reflux disease. 5. Essential hypertension. 6. Lung cancer, right upper lobectomy previously now with possible recurrence with metastasis of the brain getting radiation treatment. 7. History of tongue cancer resection and lymph node removal. 8. Moderate protein calorie malnutrition as evidenced by loss of body fat, body mass index 15.9, prominent problem in the joints, low albumin. PLAN: Home medications are resumed. Patient initially put on a clear liquid diet and GI was consulted for their opinion. Care was discussed with the patient. We will follow the patient closely hemodynamically. Copy to Dr. Phelan.
[2016-11-16 16:53] VITALS: BP 125/66; PULSE 90; RESP 18; TEMP 97.8
--- NOTE | 2016-11-17 07:12 | DS ---
DATE OF ADMISSION: 11/16/2016 DATE OF DISCHARGE: 11/16/2016 FINAL DIAGNOSES: 1. Acute lower gastrointestinal bleed likely diverticular in nature. 2. Chronic obstructive pulmonary disease in an ex-smoker. 3. Coronary artery disease. 4. Gastroesophageal reflux disease. 5. Essential hypertension. 6. Lung cancer with right upper lobe lobectomy previously now with possible recurrence with metastasis to the brain, getting radiation treatment. 7. History of tongue cancer with partial resection and lymph node removed. 8. Moderate protein calorie malnutrition evidenced by loss of body fat, body mass index of 15.9, prominent bony prominences, low albumin. HOSPITAL COURSE; This patient presented with handful of fresh lower GI bleed. Patient has had a colonoscopy previously about 3 months ago, felt to be diverticular. Patient was observed, did well. No further bleeding. Care was discussed with the patient. Hemoglobin was stable at 14.1. CONSULTATION: Dr. Lee Reyes from GI. ON EXAMINATION: ABDOMEN: Soft, nontender. LUNGS: Slightly decreased breath sounds. DISCHARGE MEDICATIONS: 1. Aspirin to be held for 7 days. 2. Tenormin 25 mg a day. 3. Benazepril 20 mg a day. 4. Lipitor 10 mg q.h.s. 5. Multivitamin 1 tablet p.o. daily. 6. Probiotic 1 capsule p.o. daily. 7. Dexamethasone 4 mg q.i.d. 8. Diflucan 100 mg a day. 9. Imdur 20 mg a day. 10. Nicotine patch. 11. Omeprazole 20 mg daily. 12. Keppra 500 mg p.o. q.12. Follow up with Dr. Phelan in one week.
[2016-11-17] MEDS ORDERED: PANTOPRAZOLE 40 MG TABLET PO SCH (09:00)
== END 2016-11-16 18:53 | disposition home or self-care (01) | DRG 378 ==
LOC: EC 11:20 → 3OBS 15:11 → OBSVTOIN 11-16 12:12
PROVIDERS: ADMIT Hospitalist; ATTEND Hospitalist
DX: K57.31 Diverticulosis of large intestine without perforation or abscess with bleeding (principal); E44.0 Moderate protein-calorie malnutrition; C79.31 Secondary malignant neoplasm of brain; C77.1 Secondary and unspecified malignant neoplasm of intrathoracic lymph nodes; C34.11 Malignant neoplasm of upper lobe, right bronchus or lung; E87.1 Hypo-osmolality and hyponatremia; I10 Essential (primary) hypertension; D72.829 Elevated white blood cell count, unspecified; Z68.1 Body mass index [BMI] 19.9 or less, adult; J44.9 Chronic obstructive pulmonary disease, unspecified; K21.9 Gastro-esophageal reflux disease without esophagitis; R74.8 Abnormal levels of other serum enzymes; J45.909 Unspecified asthma, uncomplicated; I49.3 Ventricular premature depolarization; I25.10 Atherosclerotic heart disease of native coronary artery without angina pectoris; E78.5 Hyperlipidemia, unspecified; M62.50 Muscle wasting and atrophy, not elsewhere classified, unspecified site; F40.240 Claustrophobia; R19.7 Diarrhea, unspecified; R42 Dizziness and giddiness; M75.101 Unspecified rotator cuff tear or rupture of right shoulder, not specified as traumatic; K52.832 Lymphocytic colitis; H91.90 Unspecified hearing loss, unspecified ear; F41.9 Anxiety disorder, unspecified; Z87.891 Personal history of nicotine dependence; Z79.899 Other long term (current) drug therapy; Z79.82 Long term (current) use of aspirin; Z92.21 Personal history of antineoplastic chemotherapy; Z81.8 Family history of other mental and behavioral disorders; Z82.49 Family history of ischemic heart disease and other diseases of the circulatory system; Z86.79 Personal history of other diseases of the circulatory system; Z88.0 Allergy status to penicillin; Z87.81 Personal history of (healed) traumatic fracture; Z91.81 History of falling; Z86.19 Personal history of other infectious and parasitic diseases; Z87.01 Personal history of pneumonia (recurrent); Z87.828 Personal history of other (healed) physical injury and trauma; Z87.19 Personal history of other diseases of the digestive system; Z79.52 Long term (current) use of systemic steroids; Z90.2 Acquired absence of lung [part of]; Z85.810 Personal history of malignant neoplasm of tongue; Z92.3 Personal history of irradiation; Z98.42 Cataract extraction status, left eye; Z98.41 Cataract extraction status, right eye; Z80.9 Family history of malignant neoplasm, unspecified; Z82.0 Family history of epilepsy and other diseases of the nervous system
CPT/HCPCS: 36415; 80048; 80053; 82550; 82553; 84484; 85025; 85610; 85730; 86850; 86900; 86901; 93005; 96374; 96376; 99285

== ENCOUNTER → 2016-12-03 | Outpatient (CLI) | payer MEDICARE, BC ==
--- NOTE | 2016-12-03 13:34 | MR ---
EXAMINATION TYPE: MR brain wo/w con DATE OF EXAM: 12/03/2016 11:22 AM COMPARISON: Previous CT scan of the brain dated 10/03/2016 HISTORY: Secondary malignant neoplasm of brain, post radiation TECHNIQUE: Multiplanar, multiecho imaging of the brain was obtained with and without intravenous adm inistration of 9 mL intravenous MultiHance. FINDINGS: There is mucoperiosteal thickening involving the right maxillary, both sphenoid and the eth moid sinuses. There is an air-fluid level in the sphenoid sinuses bilaterally. There is a partially empty sella. Midline structures are otherwise unremarkable. There is a normal cr aniocervical junction. The patient's subfalcine shift has resolved. There is a 3.1 x 4.6 x 4.1 cm ring-enhancing lesion in the right temporal lobe. This extends up into the right parietal lobe. There is surrounding vasogenic edema. The orbits appear unremarkable. There is no evidence of a CP angle mass lesion. There are scattered high signal FLAIR lesions throughout the deep White matter tracts of both cerebra l hemispheres. These do not enhance. These are likely on the basis of small vessel disease. IMPRESSION: 1. 3.1 X 4.6 X 4.1 CM RING ENHANCING LESION IN THE RIGHT TEMPORAL LOBE CONSISTENT WITH THE PATIENT'S HISTORY OF METASTATIC LUNG CARCINOMA. 2. SCATTERED HIGH SIGNAL FLAIR LESIONS IN THE DEEP WHITE MATTER TRACTS OF THE CEREBRAL HEMISPHERES, L IKELY ON THE BASIS SMALL VESSEL DISEASE. 3. ACUTE ON CHRONIC PANSINUSITIS.
== END | disposition home or self-care (01) ==
LOC: RADMRIMAIN 10:35
PROVIDERS: ATTEND Radiology Radiation Oncology
DX: C79.31 Secondary malignant neoplasm of brain (principal); G93.89 Other specified disorders of brain; C34.90 Malignant neoplasm of unspecified part of unspecified bronchus or lung
CPT/HCPCS: 70553; A9577